=== PATIENT | female | born 1930 | race Caucasian/White ===

== ENCOUNTER 2017-04-11 16:33 | Emergency (ER) | payer OTHER ==
[~2017-04-11] VITALS: Ht 162.6 cm; Wt 68.0 kg
[2017-04-11] MEDS ORDERED: CLON1PAT10 TD (16:57)
[2017-04-11] MEDS ORDERED: ATOR10TA69 PO (16:58)
[2017-04-11 19:42] VITALS: BP 128/74
== END 2017-04-11 19:55 | disposition home or self-care (01) ==
LOC: ER 16:33
DX: S90.31XA Contusion of right foot, initial encounter (principal); I10 Essential (primary) hypertension; E78.00 Pure hypercholesterolemia, unspecified; Z86.73 Personal history of transient ischemic attack (TIA), and cerebral infarction without residual deficits; Z91.018 Allergy to other foods; Z96.659 Presence of unspecified artificial knee joint; Z96.649 Presence of unspecified artificial hip joint; Z99.3 Dependence on wheelchair; W22.09XA Striking against other stationary object, initial encounter; Y93.89 Activity, other specified; Y92.013 Bedroom of single-family (private) house as the place of occurrence of the external cause
CPT/HCPCS: 36415; 73590; 73610; 73630; 85379; 93971; 99285